=== PATIENT | female | born 1995 | race Caucasian/White ===

== ENCOUNTER 2024-08-14 19:21 | Emergency (ER) | payer SELFPAY ==
[~2024-08-14] VITALS: Ht 157.5 cm; Wt 52.2 kg
[2024-08-14 19:21] VITALS: TEMP 98
[2024-08-14 19:44] LABS: BASOPHILS % 0.5 % (0.0-1.0); EOSINOPHILS % 1.8 % (0.0-6.0); LYMPHOCYTES % 41.8 % (18.0-39.1); MONOCYTES % 6.3 % (4.4-11.3); NEUTROPHILS % 49.4 % (38.7-80.0); RED CELL DISTRIBUTION WIDTH 11.8 % (11.7-14.4)
[2024-08-14 20:04] LABS: AMPHETAMINES SCREEN,URINE NEGATIVE (NEGATIVE); CANNABINOIDS SCREEN,URINE POSITIVE (NEGATIVE); COCAINE SCREEN,URINE NEGATIVE (NEGATIVE); METHADONE SCREEN, URINE NEGATIVE (NEGATIVE); OPIATES SCREEN,URINE NEGATIVE (NEGATIVE); PREGNANCY TEST, URINE NEGATIVE (NEGATIVE)
[2024-08-14 20:07] LABS: EST GLOMERULAR FILTRATION RATE 95 ML/MIN (>=60)
[2024-08-14 20:10] LABS: LEUKOCYTE ESTERASE ,URINE NEGATIVE (NEGATIVE); PROTEIN,URINE DIPSTICK NEGATIVE (NEGATIVE); URINE UROBILINOGEN 0.2 mg/dL (0.2 - 1)
[2024-08-14 20:18] LABS: WBC,URINE (MAN) 0-5 /HPF (0-5)
[2024-08-14 20:19] LABS: EPITHELIAL CELLS,URINE MODERATE /LPF
[2024-08-14] MEDS: ASPIRIN 81 MG CHEW TAB PO ONE (20:31)
[2024-08-14 20:45] VITALS: PULSE 72; RESP 16
[2024-08-14 20:56] VITALS: BP 112/91; O2SAT 100
== END 2024-08-14 20:55 | disposition home or self-care (01) ==
LOC: ER 19:27
DX: R00.2 Palpitations (principal); R07.89 Other chest pain
CPT/HCPCS: 36415; 71045; 80053; 80307; 81001; 81025; 82550; 83690; 83880; 84484; 85025; 93005; 99284